=== PATIENT | female | born 1945 | race Caucasian/White ===

== ENCOUNTER 2017-05-06 10:44 | Observation (INO) | payer OTHER, BC ==
[2017-05-06] MEDS ORDERED: BACITRACIN IRRIGATION/NS 50,000 UNITS/1,000 ML BTL IRR ONE (10:51)
[2017-05-06] MEDS ORDERED: diphenhydrAMINE 25 MG CAP PO ONE (10:51)
[2017-05-06] MEDS ORDERED: NS 1,000 ML IV ONE (10:51)
[2017-05-06] MEDS ORDERED: DIAZEPAM 5 MG TAB PO ONE (10:51)
[2017-05-06 11:28] LABS: PLATELET COUNT 224 10^3/uL (150-400)
--- NOTE | 2017-05-06 11:34 | CPEKG ---
Heart Rate: 125 RR Interval: 480 QRSD Interval: 82 QT Interval: 332 QTC Interval: 479 QRS [place]: -22 T Wave [place]: 138 EKG Severity - ABNORMAL ECG - EKG Impression: ATRIAL FIBRILLATION, V-RATE 106-155 EKG Impression: BORDERLINE LEFT AXIS DEVIATION EKG Impression: REPOL ABNRM SUGGESTS ISCHEMIA, ANT-LAT LEADS Electronically Signed By: Dean Tavera 06-May-2017 16:11:40
[2017-05-06 11:43] LABS: INR 1.97 (0.83-1.16); PROTIME(PATIENT) 22.5 SEC (12.0-15.0)
[2017-05-06] MEDS ORDERED: ceFAZolin 2 GM/SWFI 2 GM/20 ML SYR IVP ONE (12:00)
--- NOTE | 2017-05-06 12:59 | PDGENHP ---
History & Physical Chief Complaint: bradycardia Relevant Physical Exam: s1s2 rrr cta ao3 Cardiorespiratory Assessment: afib with symptomatic tachy-nahomy syndrome. permanent pacemaker placement
--- NOTE | 2017-05-06 13:00 | PDPROPOC ---
Sedation Plan of Care Sedation Plan of Care: vital signs stable, mental status noted, patient educated of risks, benefits, alternatives, patient can tolerate sedation ASA Classification: ASA 2 Planned drugs: fentanyl, midazolam Mallampati Score: Class 1 Mallampati Reference Image: Patient passed 3-3-2 rule?: Yes
[2017-05-06] MEDS ORDERED: MIDAZOLAM 2 MG/2 ML VIAL ONE ×3 (13:34→14:37)
[2017-05-06] MEDS ORDERED: fentaNYL 100 MCG/2 ML INJ ONE (13:34)
[2017-05-06] MEDS ORDERED: LIDOCAINE 1% 300 MG/30 ML SDV ONE (13:34)
[2017-05-06] MEDS ORDERED: IOPAMIDOL (ISOVUE-300) 100 ML BTL ONE (13:35)
--- NOTE | 2017-05-06 15:17 | EPPROC ---
Electrophysiology Procedure Note: PROCEDURE PERFORMED: 1. Implantation of an A/V Pacemaker 2. Subclavian vein angiography 3. Fluoroscopy INDICATION: Bradycardia PROCEDURE NOTE: Patient presented to the cardiac catheterization laboratory in a fasting, post absorptive state . EP RN administered sedation. The left infraclavicular area was prepped and draped in the usual sterile fashion. Lidocaine plus bupivacaine was used for local anesthesia. Left subclavian venography was performed by injection of iodinated contrast into the left antecubital vein. This was done to assure patency of the vein and also to assess for any anatomical aberrations. Using a combination of blunt and sharp dissection and electrocautery, the dissection was carried down to the prepectoral fascia. A pocket was made in this anatomical plane. All bleeding was controlled with electrocautery. The pocket was packed with gauze soaked in antibiotic solution. Fluoroscopy was utilized during the entire procedure for venous access and placement of the leads. Using a direct stick technique the left extrathoracic axillary vein was accessed with 2 sticks using the modified Seldinger technique. Placement of the guidewires into the venous system was confirmed by low-pressure blood return and also by visualizing the guidewires advancing into the inferior vena cava. A purse string suture was applied around the guidewires. Two #7 [place] sheaths were advanced under fluoroscopic guidance over the guidewire. An active fixation ventricular lead was advanced into the right ventricular distal septum and screwed in place. An active fixation atrial lead was advanced into the right atrial appendage and screwed in place. The peel away sheaths were removed. Pacing thresholds, sensing parameters and lead impedances were measured. There was no diaphragmatic stimulation at maximum output. The leads were sutured to the prepectoral fascia with 3 nonabsorbable sutures each. The pocket was again inspected for any bleeding. The leads were attached to the pacemaker securely. The pacemaker was inserted into the pocket and secured in place with a nonabsorbable suture. Fluoroscopy was performed in CASTANEDA and SUDANESE planes to verify right-sided placement of the leads. Also fluoroscopy of the pacemaker pocket was performed. The pacemaker pocket was closed in 3 layers with absorbable monocryl sutures and gavin. Appropriate dressing was applied. The patient left the cardiac catheterization laboratory in stable condition. Serial Numbers: 1. Device: Biotronik Edora 8DRT MRI SN [id number] 2. Atrial Lead: Biotronik Solia S45 SN [id number] 3. Ventricular Lead: Biotronik Solia S53 SN [id number] Stimulation Thresholds & Impedance Measurements: 1. Atrial Lead Initially AFIB f waves 1.3-3.9 mV, converted spont to NSR later in case threshold 0.7 V 0.4 ms P wave 3 mV 507 ohm 2. Ventricular Lead R 8.9 mV 0.6 V 0.4 ms 780 ohm Toy Pacing Parameters 1. Pacing mode: DDD CLS 2. Lower rate: 60ppm 3. Upper tracking rate: 130 ppm 4. Upper sensor rate: 130 ppm Patient Problems: Problems Problem Status Onset Bradycardia Acute Bradycardia by electrocardiography Acute
[2017-05-06] MEDS ORDERED: Propylene Glycol/Peg 400 [Systane 0.3-0.4% Eye Drops] 1 DROP OP PRN (15:18)
--- NOTE | 2017-05-06 15:27 | GCON ---
[f rep st] CONSULTATION INFECTIOUS DISEASE CONSULTATION DATE OF CONSULTATION: 05/06/2017 REFERRING PHYSICIAN: Dean Tavera MD REASON FOR CONSULTATION: Antibiotic allergies for antibiotic recommendations prior to pacemaker placement. CHIEF COMPLAINT: Rapid atrial fibrillation. HISTORY OF PRESENT ILLNESS: This is a 72-year-old female with a past medical history significant for atrial fibrillation, hypertension, dyslipidemia , who is here for a prescheduled pacemaker placement. She has multiple antibiotic allergies listed and therefore perioperative antibiotic evaluation was requested. Patient currently feels well. She is not noticing palpitations at present. She feels more shortness of breath when she is exerting herself. She is here for a prescheduled pacemaker placement. REVIEW OF SYSTEMS: GENERAL: No fevers or shaking chills recently, had no headaches. EYES: No change in vision. ENT: No sore throat, difficulty swallowing , ear pain or ear drainage. CARDIOVASCULAR: Currently denies any palpitations. No chest pain. RESPIRATORY: No shortness of breath, cough, or sputum production. ABDOMEN: No nausea, vomiting, abdominal pain, or diarrhea. GENITOURINARY: No dysuria. MUSCULOSKELETAL: No joint pains or muscle aches. SKIN : No rashes. Rest of a 10-point review of systems essentially negative except noted above. PAST MEDICAL HISTORY: Significant for atrial fibrillation, hypertension, dyslipidemia, history of bradycardia. PAST SURGICAL HISTORY: Significant for cholecystectomy, hysterectomy, tonsillectomy, bilateral total knee replacements, lithotripsy. ALLERGIES: Allergies listed are cephalexin which she states gives her upset stomach. This was questioned in more detail. She denies any shortness of breath, rash, throat swelling or facial swelling. She states it only gives her an upset stomach. Next listed allergy is vancomycin, which she states gives her itchiness but it is not clear if she gets a rash on it. She could not remember the allergy to ciprofloxacin or moxifloxacin, although on the computer it is listed as itching. She states that most of the antibiotics just tend to give her upset stomach and diarrhea. Nitrofurantoin is also listed as an allergy with a reaction of headache. Other listed allergies include allergies are adverse reactions, use of acetaminophen which gives her itching and rash, clonidine which gives her itching and rash, codeine which gives her upset stomach, fluoxetine gives her a rash, ibuprofen gives her the shakes, Linzess gives her diarrhea, oxycodone gives her itching and rash, pentazocine gives her upset stomach, prochlorperazine gives her diarrhea, tramadol gives her upset stomach, Bextra gives her upset stomach. SOCIAL HISTORY: She is a nonsmoker. She does not drink alcohol. She lives with her . FAMILY HISTORY: Significant for heart disease. PHYSICAL EXAMINATION: VITAL SIGNS: Blood pressure 144/78, heart rate 114, respiratory rate 26, no temperature listed. GENERAL: She is resting in bed. No acute respiratory distress. Awake, alert, and oriented x3. HEENT: Head is normocephalic, atraumatic. Eyes with mild conjunctival injection without exudates or discharge. No petechiae noted. Oropharynx is clear. There is no posterior erythema or thrush. CARDIOVASCULAR: S1, S2. Irregular rate and rhythm. RESPIRATORY: Clear to auscultate bilaterally. No rhonchi appreciated. ABDOMEN: Positive bowel sounds in all quadrants. Soft, nontender, nondistended. No obvious organomegaly appreciated. EXTREMITIES: Without lower extremity edema. MUSCULOSKELETAL: No obvious joint pain or pain on palpation of the joints, no joint effusions. SKIN: No obvious rashes on a limited exam. LABORATORY DATA: No laboratory data collected on this patient. ASSESSMENT: 1. Multiple antibiotic adverse reactions/intolerances 2. Here for pacemaker placement. PLAN: At this point in time, in discussion with her reaction to cephalexin, I believe that her reaction is only an adverse reaction which is upset stomach and possibly diarrhea and not a true allergy. She does not get any rashes, shortness of breath or throat swelling or facial swelling. Thus, this is not a true allergy. Would recommend giving her the usual dosing protocol for Ancef perioperatively prior to her pacemaker placement. We will correct her allergy list to reflect cephalexin as an adverse reaction and not an allergy. Care coordinated with the RN. Plan of care discussed with the patient. I thank you very much for providing this opportunity to care for your patient in consultation. /[id number]/MODL MTDD
--- NOTE | 2017-05-06 15:33 | CPEKG ---
Heart Rate: 70 RR Interval: 857 P-R Interval: 148 QRSD Interval: 82 QT Interval: 404 QTC Interval: 436 QRS [place]: -34 T Wave [place]: 94 EKG Severity - ABNORMAL ECG - EKG Impression: ATRIAL-PACED RHYTHM EKG Impression: LEFT AXIS DEVIATION EKG Impression: PROBABLE LVH WITH SECONDARY REPOL ABNRM Electronically Signed By: Dean Tavera 06-May-2017 16:11:35
[2017-05-06] MEDS ORDERED: ZOLPIDEM TARTRATE 5 MG TAB PO PRN (17:03)
[2017-05-06] MEDS: ACETAMINOPHEN 325 MG TAB PO PRN (17:17)
[2017-05-06] MEDS ORDERED: FAMOTIDINE 20 MG TAB PO SCH (21:00)
[2017-05-06] MEDS ORDERED: DILTIAZEM CD 120 MG CAP PO SCH (21:00)
[2017-05-06] MEDS ORDERED: WARFARIN SODIUM 2 MG TAB PO SCH (21:00)
[2017-05-07 03:57] VITALS: O2SAT 94
[2017-05-07 04:34] LABS: PLATELET COUNT 181 10^3/uL (150-400)
[2017-05-07 07:59] VITALS: BP 134/81; PULSE 66; RESP 12; TEMP 97.4
[2017-05-07] MEDS ORDERED: ALLOPURINOL 300 MG TAB PO SCH (09:00)
[2017-05-07] MEDS ORDERED: OMEGA-3 FATTY ACIDS 1,000 MG CAP PO SCH (09:00)
[2017-05-07] MEDS ORDERED: SPIRONOLACTONE 25 MG TAB PO SCH (09:00)
[2017-05-07] MEDS: ACETAMINOPHEN 325 MG TAB PO PRN (09:12)
--- NOTE | 2017-05-07 09:24 | CPEKG ---
Heart Rate: 83 RR Interval: 723 P-R Interval: 132 QRSD Interval: 86 QT Interval: 396 QTC Interval: 466 QRS [place]: -34 T Wave [place]: 115 EKG Severity - ABNORMAL ECG - EKG Impression: ATRIAL-PACED COMPLEXES EKG Impression: MULTIPLE VENTRICULAR PREMATURE COMPLEXES EKG Impression: LEFT AXIS DEVIATION EKG Impression: BORDERLINE REPOL ABNORMALITY, ANT-LAT LEADS Electronically Signed By: Dean Tavera 07-May-2017 16:50:37
--- NOTE | 2017-05-07 10:26 | GDS ---
[f rep st] DISCHARGE SUMMARY DISCHARGE DIAGNOSES: 1. 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 2. Atrial flutter, currently on Coumadin. 3. Premature ventricular contractions. HOSPITAL COURSE: For detailed H and P, please see prior dictation. Briefly, the patient is a 72-yea r-old female with a history of paroxysmal atrial fibrillation/flutter. She presented to our office c omplaining of tachycardia occurring every few months as well as fatigue and intermittent presyncope. She was found to have bradycardia with rates of 40 as well as pauses of 2.5 seconds on Holter monito r. She also was noted to have atrial flutter, rates up to 160 beats per minute. Ultimately, the dec ision was made to proceed with dual-chamber pacemaker placement to optimize medical therapy. She had a Biotronik dual-chamber device placed by Dr. Dean Tavera on 05/06/2017. The procedure was uncomplic ated. The following morning, she complained of mild discomfort over her pacemaker site. The device was interrogated and working properly. She was monitored on telemetry and was intermittently paced. She did have a brief run of atrial flutter with rates of 130 beats per minute. Her EKG the day of d ischarge revealed A-pacing with 2 PVCs. Her chest x-ray was negative for pneumothorax. PHYSICAL EXAMINATION: GENERAL: Patient appears in no acute distress. VITALS: Blood pressure 134/8 1, heart rate 66, oxygen saturation of 94% on room air, afebrile. LUNGS: Clear to auscultation. No wheezes, rhonchi, or crackles auscultated. CARDIAC: Regular rate and rhythm. CHEST WALL: Her pac er site is clean and intact, without any evidence of infection or hematoma. DISCHARGE MEDICATIONS: Her medications are unchanged. She will continue fish oil 1000 mg daily, Pep magda 20 mg at bedtime, Tylenol p.r.n., Coumadin 1 mg on Friday, Friday, Friday and 2 mg the , Aldactone 50 mg daily, allopurinol 150 mg daily, Lunesta 3 mg p.r.n., diltiazem ER 120 mg at bedtime. PLAN: The patient is currently stable and ready for discharge home. She has been given pacer precau tions. She will follow up in our office as scheduled in 1 week with a pacer interrogation and wound check. Her INR is currently 1.97. She will resume her normal Coumadin dosing. She will have the IN R checked next week. Greater than 30 minutes was spent coordinating the patient's care today. /[id number]/MODL
[2017-05-07] MEDS ORDERED: WARFARIN SODIUM 1 MG TAB PO SCH (21:00)
== END 2017-05-07 12:44 | disposition home or self-care (01) ==
LOC: FCATH 10:44 → F2W 15:17
PROVIDERS: ADMIT Internal Medicine Cardiovascular Disease; ATTEND Internal Medicine Cardiovascular Disease
DX: I49.5 Sick sinus syndrome (principal); I48.92 Unspecified atrial flutter; I49.3 Ventricular premature depolarization; Z79.01 Long term (current) use of anticoagulants
CPT/HCPCS: 33208; 71045; 71046; 93005; C1785; C1898; J0690; J2250; J3010; Q9967